=== PATIENT | male | born 1995 | race Caucasian/White ===

== ENCOUNTER 2020-07-24 04:08 | Emergency (ER) | payer OTHER ==
[2020-07-24 05:35] LABS: ABSOLUTE BASOPHILS # (AUTO) 0.1 10^3/uL (0.0-0.2); ABSOLUTE EOSINOPHILS # (AUTO) 0.2 10^3/uL (0.0-0.6); ABSOLUTE LYMPHOCYTES (AUTO) 1.7 10^3/uL (0.5-4.7); ABSOLUTE MONOCYTES (AUTO) 0.6 10^3/uL (0.1-1.4); ABSOLUTE NEUT (AUTO) 4.8 10^3/uL (1.7-8.2); BASOPHILS % (AUTO) 0.7 % (0-2); EOSINOPHILS % (AUTO) 2.5 % (0-6); HEMOGLOBIN 16.1 g/dL (13.5-17.0); LYMPHOCYTES % (AUTO) 23.2 % (13-45); MEAN CORPUSCULAR HGB CONC 35.8 g/dL (32.0-36.0); MEAN CORPUSCULAR VOLUME 84 fl (80-97); MONOCYTES % (AUTO) 8.5 % (3-13); PLATELET COUNT 196 10^3/uL (150-450); RED BLOOD COUNT 5.37 10^6/uL (4.35-5.55); RED CELL DISTRIBUTION WIDTH 13.7 % (11.5-14.0); SEGMENTED NEUTROPHILS % (AUTO) 65.1 % (42-78); TOTAL CELLS COUNTED % (AUTO) 100 %; WHITE BLOOD COUNT 7.4 10^3/uL (4.0-10.5)
[2020-07-24 05:42] LABS: ALBUMIN 4.7 g/dL (3.5-5.0); ALKALINE PHOSPHATASE 68 U/L (38-126); ASPARTATE AMINO TRANSFERASE 21 U/L (17-59); BILIRUBIN,DIRECT 0.2 mg/dL (0.0-0.4); BILIRUBIN,TOTAL 0.8 mg/dL (0.2-1.3); BLOOD UREA NITROGEN 15 mg/dL (7-20); CALCIUM 9.6 mg/dL (8.4-10.2); CARBON DIOXIDE 29 mmol/L (22-30); CHLORIDE 103 mmol/L (98-107); GLUCOSE 110 mg/dL (75-110); TOTAL PROTEIN 7.3 g/dL (6.3-8.2)
[2020-07-24 05:49] LABS: ANION GAP 9 (5-19); POTASSIUM 4.5 mmol/L (3.6-5.0)
[2020-07-24 06:17] LABS: APPEARANCE,URINE CLEAR; BILIRUBIN,URINE NEGATIVE (NEGATIVE); COLOR,URINE YELLOW; GLUCOSE, URINE NEGATIVE (NEGATIVE); KETONES,URINE NEGATIVE (NEGATIVE); LEUKOCYTE ESTERASE,URINE NEGATIVE (NEGATIVE); NITRITE,URINE NEGATIVE (NEGATIVE); PROTEIN,URINE NEGATIVE (NEGATIVE); URINE SPECIFIC GRAVITY 1.027
[2020-07-24] MEDS ORDERED: MORPHINE SULFATE 10 MG/ML INJ IV ONE ×2 (07:17→09:29)
[2020-07-24] MEDS ORDERED: NORMAL SALINE 1000 ML 1,000 ML IV ONE ×2 (07:17→14:02)
[2020-07-24] MEDS ORDERED: ONDANSETRON HCL INJ/PF 4 MG/2 ML SDV IV ONE (07:17)
--- NOTE | 2020-07-24 07:21 | ER Document Report ---
ED GI/ <VIKA GALEANA - Last Filed: 07/24/20 07:22> <CARRILLO MILLARD Rian - Last Filed: 07/24/20 15:00> - General Chief Complaint: Abdominal Pain Stated Complaint: abdominal pain for months Time Seen by Provider: 07/24/20 07:12 Primary Care Provider: NADINE MALIK MD [ACTIVE STAFF] - Follow up as needed PATSY POWER MD [ACTIVE STAFF] - Follow up as needed VICTORIA MARTINEZ MD [ACTIVE STAFF] - Follow up as needed Notes: CHIEF COMPLAINT: Right upper quadrant pain HPI: 24-year-old male presenting for several months of intermittent right upper quadrant pain. States has been to urgent care several times without resolution of symptoms. States the pain woke him from sleep around 130 last night that has become severe. He is unable to obtain a position of comfort. Has had significant nausea with this. No fever. ROS: See HPI - all other systems were reviewed and are otherwise negative Constitutional: no fever Eyes: no drainage, no blurred vision ENT: no runny nose, no sore throat Cardiovascular: no chest pain Resp: no SOB, no cough GI: no vomiting, no diarrhea, + abdominal pain : no dysuria Integumentary: no rash Allergy: no hives MEDICATIONS: I agree with the patient medications as charted by the RN. ALLERGIES: I agree with the allergies as charted by the RN. PAST MEDICAL HISTORY/PAST SURGICAL HISTORY: Reviewed and agree as charted by RN. SOCIAL HISTORY: Reviewed and agree as charted by RN. FAMILY HISTORY: No significant familial comorbid conditions directly related to patient complaint EXAM: Reviewed vital signs as charted by RN. CONSTITUTIONAL: Alert and oriented and responds appropriately to questions. ill- appearing; well-nourished HEAD: Normocephalic; atraumatic EYES: PERRL; Conjunctivae clear, sclerae non-icteric ENT: normal nose; no rhinorrhea; moist mucous membranes; pharynx without lesions noted, no uvula edema or deviation, no tonsillar hypertrophy, phonation normal NECK: Supple without meningismus; non-tender; no cervical lymphadenopathy, no m asses CARD: RRR; no murmurs, no clicks, no rubs, no gallops; symmetric distal pulses RESP: Normal chest excursion without splinting or tachypnea; breath sounds clear and equal bilaterally; no wheezes, no rhonchi, no rales, pulse oximetry ABD/GI: Normal bowel sounds; non-distended; soft, significant tenderness in the right upper quadrant region with guarding; no palpable organomegaly or masses. BACK: The back appears normal and is non-tender to palpation, there is no CVA tenderness EXT: Normal ROM in all joints; non-tender to palpation; no cyanosis, no effusions, no edema SKIN: Pale color for age and race; warm; dry; good turgor; no acute lesions noted NEURO: Moves all extremities equally; Motor and sensory function intact PSYCH: The patient's mood and manner are appropriate. Grooming and personal hygiene are appropriate. MDM: 24-year-old male with significant pain in the right upper quadrant region suspect cholelithiasis although kidney stone would also be in the differential. Initial screening labs are negative for acute findings. Will obtain ultrasound, keep patient n.p.o. provide pain management patient will be turned over to oncoming shift to follow and disposition (VIKA GALEANA) - Related Data Allergies/Adverse Reactions: ciprofloxacin [From Cipro] Allergy (Severe, Verified 07/24/20 04:20) metronidazole Allergy (Severe, Verified 07/24/20 04:20) Past Medical History - Social History Smoking Status: Current Every Day Smoker Chew tobacco use (# tins/day): No Frequency of alcohol use: None Drug Abuse: None Patient has homicidal ideation: No <VIKA GALEANA - Last Filed: 07/24/20 07:22> - Social History Family History: Reviewed & Not Pertinent <CARRILLO MILLARD - Last Filed: 07/24/20 15:00> Physical Exam - Vital signs Vitals: Temp Pulse Resp BP Pulse Ox 97.3 F 66 16 125/78 99 07/24/20 04:16 07/24/20 04:16 07/24/20 04:16 07/24/20 04:16 07/24/20 04:16 Course - Laboratory Result Diagrams: 07/24/20 05:10 07/24/20 05:10 <VIKA GALEANA - Last Filed: 07/24/20 07:22> - Laboratory Result Diagrams: 07/24/20 13:57 07/24/20 13:57 <CARRILLO MILLARD Rian - Last Filed: 07/24/20 15:00> - Re-evaluation Re-evalutation: 07/24/20 09:32 Report received from Vika Galeana at 0800. Patient resting in room, no complaints at this time. Awaiting for ultrasound results. Right upper quadrant ultrasound does show that the patient has cholelithiasis and choledocholithasis. Patient received IV hydration and pain control with morphine CBC negative for leukocytosis or anemia, CMP negative for hepatic or renal dysfunction, lipase is normal. Consulted with Dr. Victoria Martinez, surgeon on-call who states that due to patient having a Choledocholithasis lithiasis as well as a cholelithiasis, advised that he needs an ERCP, we do not have the gas troenterologist on-call today. We did consult Dr. Terrell Martin, machine molder who is not on-call who is out of town for the weekend but will be able to do an ERCP this upcoming Sunday. We did reach out to multiple other facilities, [facility], [facility], [place] to see if they could take him for an ERCP. All facilities are on regional transport right now and cannot accept the patient unless he is critical. Normal CMP, normal liver enzymes alk phos, lipase, T bili, as well as his vitals being stable they do not have room a capacity to do a ERCP over the weekend but would be able to do an ERCP on Sunday which patient would be able to receive from our local machine molder. By recommendation of Dr. Pappas for a MRCP. MRCP shows a cholelithiasis, the common bile duct is normal in caliber without intraluminal filling defects. Since patient is afebrile, vitals stable, labs are unremarkable, patient can follow-up outpatient with the surgeon as well as a machine molder. It was agreeable to this plan of care and verbalized understanding of this plan of care. After performing a Medical Screening Examination, I estimate there is LOW risk for ACUTE APPENDICITIS, BOWEL OBSTRUCTION, ACUTE CHOLECYSTITIS, PERFORATED DIVERTICULITIS, INCARCERATED HERNIA, PANCREATITIS, TESTICULAR TORSION or PERFORATED ULCER, thus I consider the discharge disposition reasonable. Also, there is no evidence or peritonitis, sepsis, or toxicity. I have reevaluated this patient multiple times and no significant life threatening changes are noted. The patient and I have discussed the diagnosis and risks, and we agree with discharging home with close follow-up with the understanding that symptoms and presentations can change. We also discussed returning to the Emergency Department immediately if new or worsening symptoms occur. We have discussed the symptoms which are most concerning (e.g., bloody stool, fever, changing or worsening pain, intractable vomiting - standard verbal up date) that necessitate immediate return. (CARRILLO MILLARD) - Vital Signs Vital signs: Temp Pulse Resp BP Pulse Ox 98.2 F 76 14 125/76 100 07/24/20 09:51 07/24/20 09:51 07/24/20 09:51 07/24/20 09:51 07/24/20 09:51 - Laboratory Laboratory results interpreted by me: 07/24/20 07/24/20 05:58 13:57 WBC 11.2 H Absolute Neuts (auto) 8.6 H Urine Blood MODERATE H Urine Urobilinogen 2.0 H Discharge <VIKA GALEANA - Last Filed: 07/24/20 07:22> <CARRILLO MILLARD - Last Filed: 07/24/20 15:00> - Discharge Clinical Impression: Cholelithiasis Condition: Stable Disposition: HOME, SELF-CARE Instructions: Gallbladder Disease ([facility]) Additional Instructions: Your MRCP shows that you do not have a choledocholithiasis, is completely normal. You do have gallstones, you do not have an infected gallbladder. Your labs are completely normal. You do not need to be admitted or transferred at this time. You can follow-up outpatient with the machine molder as well as a surgeon. You were given a sixpack of [place] to go home with, please do not drive, drink alcohol or operate heavy machinery while taking this medication as it can cause sedation or impairment of cognitive function. If you experience any worsening symptoms, worsening pain fever, chest pain, worsening abdominal pain please return to the emergency room immediately Return immediately for any new or worsening symptoms. Follow up with primary care provider, call tomorrow to make followup appointme nt. Forms: Return to Work Referrals: VICTORIA MARTINEZ MD [ACTIVE STAFF] - Follow up as needed NADINE MALIK MD [ACTIVE STAFF] - Follow up as needed PATSY POWER MD [ACTIVE STAFF] - Follow up as needed
--- NOTE | 2020-07-24 08:45 | RADIOLOGY REPORT (SQ) ---
EXAM DESCRIPTION: U/S ABDOMEN LIMITED W/O DOP IMAGES COMPLETED DATE/TIME: 07/24/2020 8:15 am REASON FOR STUDY: ruq pain COMPARISON: None. TECHNIQUE: Dynamic and static grayscale images acquired of the abdomen and recorded on PACS. Rogelioo anamaria selected color Doppler and spectral images recorded. LIMITATIONS: None. FINDINGS: PANCREAS: No masses. Visualized pancreatic duct normal caliber. LIVER: No masses. Echotexture normal. LIVER VASCULATURE: Normal directional flow of the main portal vein and hepatic veins. GALLBLADDER: Multiple stones. No pericholecystic fluid. Sludge. ULTRASOUND-DETECTED [place]'S SIGN: Positive. INTRAHEPATIC DUCTS AND COMMON DUCT: Common duct is dilated at 8 mm. There appear to be stones in the common bile duct. INFERIOR VENA CAVA: Normal flow. AORTA: No aneurysm. RIGHT KIDNEY: Normal size. Normal echogenicity. No solid or suspicious masses. No hydronephrosis. No calcifications. PERITONEAL AND RIGHT PLEURAL SPACE: No ascites or effusions. OTHER: No other significant findings. IMPRESSION: Cholelithiasis and choledocholithiasis. Positive ultrasound [place] sign. TECHNICAL DOCUMENTATION: JOB ID: [id number] 2010 [email or web address]- All Rights Reserved Reading location - IP/workstation name: [email or web address]
[2020-07-24] MEDS ORDERED: HYDROMORPHONE HCL INJ/PF 2 MG/ML AMPULE IV ONE ×2 (11:35→14:34)
--- NOTE | 2020-07-24 12:44 | RADIOLOGY REPORT (SQ) ---
EXAM DESCRIPTION: MRI ABDOMEN WITHOUT IMAGES COMPLETED DATE/TIME: 07/24/2020 12:22 pm REASON FOR STUDY: MRCP COMPARISON: Right upper quadrant ultrasound 07/24/2020 TECHNIQUE: Noncontrast MRCP. Source and MIP images reviewed. LIMITATIONS: None. FINDINGS: GALLBLADDER: Numerous T2 hypointense cholelithiasis are present in the gallbladder lumen. No definite gallbladder wall thickening or pericholecystic fluid. INTRAHEPATIC DUCTS: Nondilated. EXTRAHEPATIC DUCTS: Common duct is normal caliber. No dilatation of the pancreatic duct. No ductal filling defects noted. PANCREAS: Generally homogeneous, no gross mass or significant signal alteration. No surrounding infl ammatory changes or fluid. Pancreatic duct is normal. LIVER, SPLEEN, KIDNEYS, ADRENALS: No significant abnormality. VESSELS: No evidence of aneurysm. Grossly appropriate flow voids in the major vascular structures. LUNG BASES: Grossly clear. OTHER: No other significant finding. IMPRESSION: Cholelithiasis. The common bile duct is normal in caliber without intraluminal filling defects. TECHNICAL DOCUMENTATION: JOB ID: [id number] 2010 [employer]- All Rights Reserved Reading location - IP/workstation name: [email or web address]
[2020-07-24 14:05] LABS: ABSOLUTE BASOPHILS # (AUTO) 0.1 10^3/uL (0.0-0.2); ABSOLUTE EOSINOPHILS # (AUTO) 0.1 10^3/uL (0.0-0.6); ABSOLUTE LYMPHOCYTES (AUTO) 1.5 10^3/uL (0.5-4.7); ABSOLUTE NEUT (AUTO) 8.6 10^3/uL (1.7-8.2); BASOPHILS % (AUTO) 0.6 % (0-2); EOSINOPHILS % (AUTO) 0.6 % (0-6); HEMATOCRIT 43.2 % (37.9-51.0); HEMOGLOBIN 15.2 g/dL (13.5-17.0); LYMPHOCYTES % (AUTO) 13.2 % (13-45); MEAN CORPUSCULAR HEMOGLOBIN 29.4 pg (27.0-33.4); MEAN CORPUSCULAR HGB CONC 35.2 g/dL (32.0-36.0); MEAN CORPUSCULAR VOLUME 84 fl (80-97); MONOCYTES % (AUTO) 8.7 % (3-13); PLATELET COUNT 182 10^3/uL (150-450); RED BLOOD COUNT 5.18 10^6/uL (4.35-5.55); RED CELL DISTRIBUTION WIDTH 13.5 % (11.5-14.0); SEGMENTED NEUTROPHILS % (AUTO) 76.9 % (42-78); TOTAL CELLS COUNTED % (AUTO) 100 %; WHITE BLOOD COUNT 11.2 10^3/uL (4.0-10.5)
[2020-07-24] MEDS ORDERED: HYDROCODONE/ACETAMINOPHEN 5-325 MG (6 TAB/ER DISP) PO PRN (14:18)
[2020-07-24 14:26] LABS: ALBUMIN 3.8 g/dL (3.5-5.0); ALKALINE PHOSPHATASE 59 U/L (38-126); ANION GAP 7 (5-19); ASPARTATE AMINO TRANSFERASE 20 U/L (17-59); BILIRUBIN,DIRECT 0.2 mg/dL (0.0-0.4); BILIRUBIN,TOTAL 0.8 mg/dL (0.2-1.3); BLOOD UREA NITROGEN 12 mg/dL (7-20); CALCIUM 8.9 mg/dL (8.4-10.2); CARBON DIOXIDE 26 mmol/L (22-30); CHLORIDE 106 mmol/L (98-107); GLUCOSE 94 mg/dL (75-110); POTASSIUM 4.1 mmol/L (3.6-5.0); TOTAL PROTEIN 6.5 g/dL (6.3-8.2)
[2020-07-24 15:14] VITALS: BP 106/66
== END 2020-07-24 15:15 | disposition home or self-care (01) ==
LOC: ER 04:08
DX: K80.70 Calculus of gallbladder and bile duct without cholecystitis without obstruction (principal); F17.200 Nicotine dependence, unspecified, uncomplicated; Z88.1 Allergy status to other antibiotic agents; Z88.3 Allergy status to other anti-infective agents
CPT/HCPCS: 96376; 99285; 96361; 96374; 96375; 36415; 83690; 85025; 87070; 80053; 81001; 74181; 76705; J2270; J1170; J2405; J7030